=== PATIENT | female | born 2000 | race Caucasian/White ===

== ENCOUNTER 2024-12-02 13:45 | Emergency (ER) | payer OTHER, SELFPAY ==
[2024-12-02 14:22] VITALS: BP 141/80; PULSE 111; RESP 20; TEMP 36.5; O2SAT 100
--- NOTE | 2024-12-02 15:01 | ED_ITS ---
HPI - Abdominal Pain General Chief Complaint: Abdominal Pain Stated Complaint: Chest Pain/Cold Sweats Time Seen by Provider: 12/02/24 15:01 Source: patient and RN notes reviewed Mode of arrival: ambulatory Limitations: no limitations History of Present Illness HPI narrative: 24-year-old female with PCOS, GERD and anxiety presented for complaint of epigastric pain for 1 week. This morning pain was 9/10 stating it was excruciating. Endorses associated nausea, dizziness, ?buzzing in the head and hands? and cold sweats with palpitations. She also reports the pain is worse when she takes deep breaths. Says the pain is less now. Takes Pepcid regularly. She had a telehealth visit today regarding the symptoms and was advised evaluation. Denies urinary complaints, flank pain, vomiting, cough, or fever. Related Data Home Medications ?Medication ?Instructions ?Recorded ?Confirmed ?Last Taken ?Type bupropion HCl 150 mg 24 hr tablet, 150 mg PO DAILY 12/02/24 12/02/24 Unknown History extended release duloxetine 40 mg capsule,delayed 40 mg PO DAILY 12/02/24 12/02/24 Unknown History release Allergies Allergy/AdvReac Type Severity Reaction Status Date / Time No Known Allergies Allergy Verified 12/02/24 14:25 Review of Systems Review of Systems: CONSTITUTIONAL: Denies body aches, fever, chills CARDIOVASCULAR: Denies chest pain, or edema. RESPIRATORY: Denies cough or dyspnea. GASTROINTESTINAL: Endorses abdominal pain, nausea, Denies vomiting, diarrhea, hematochezia, melena, hematemesis GENITOURINARY: Denies dysuria, hematuria, or CVA tenderness. SKIN: Denies rash, or wounds. MUSCULOSKELETAL: Denies back pain, joint pain, or myalgia. NEUROLOGIC: Denies headache, numbness, tingling, or weakness. All systems reviewed & are unremarkable except as noted in HPI and below PMFSH Past Medical History Medical History PCOS (polycystic ovarian syndrome) GERD (gastroesophageal reflux disease) Anxiety Comments At time of signature, I have reviewed and agree with nursing past medical, surgical, social and family history unless otherwise noted. Please see nursing chart for further information. There is no relevant family history pertinent to the presenting complaint Exam Narrative: GENERAL: Well-appearing, and in no acute distress. ENT: Mucous membranes pink and moist. CHEST: No respiratory distress. Clear to auscultation. HEART: Regular rate and rhythm. No murmur appreciated. Normal peripheral pulses. ABDOMEN: abd soft, nondistended, normal active bowel sounds. Generalized tender abdomen: No guarding, rebound tenderness, asymmetry SKIN: Warm, dry, no rash. Capillary refill normal. Normal skin turgor. NEURO: No focal deficits. Alert and oriented x3. PSYCH: Flat affect. Course Course Emergency Course: Patient is aware of diagnosis, understands and agrees to treatment plan. Anticipatory guidance given. Patient agrees to follow-up as directed and is aware of reasons to seek care at the emergency department. Portions of this record may have been created with voice recognition software Level of Care: Express Care Visit Vital Signs Vital signs: Vital Signs Temperature 97.7 F 12/02/24 14:22 Pulse Rate 111 H 12/02/24 14:22 Respiratory Rate 12/02/24 14:22 Blood Pressure 141/80 H 12/02/24 14:22 Pulse Oximetry 100 12/02/24 14:22 Oxygen Delivery Room Air 12/02/24 14:22 Temperature 97.7 F 12/02/24 14:22 Pulse Rate 111 H 12/02/24 14:22 Respiratory Rate 20 12/02/24 14:22 Blood Pressure 141/80 H 12/02/24 14:22 Pulse Oximetry 100 12/02/24 14:22 Oxygen Delivery Room Air 12/02/24 14:22 Transfer Transfered to: [facility] Transportation: Other (Private vehicle) Transfer rationale: Pt is agreeable to transfer. Requests transfer to [facility] via private vehicle. Risks of transportation reviewed with pt including injury, worsening of condition and . v/u. Friend will be driving pt; Report called to hospital, spoke with Dr Celeste accepting physician. Pt is in stable condition at time of transfer. Advised to remain NPO and go directly to the hospital. MDM - Abdominal Pain MDM Narrative Medical decision making narrative: Patient with epigastric and generalized abdominal pain for 1 week. Advised ER transfer for further evaluation. Differential Diagnosis Differential diagnosis: Likely abdominal pain, acute appendicitis, constipation, diverticulitis, endometriosis, gastroenteritis and small bowel obstruction Discharge Plan Discharge Clinical Impression: Abdominal pain Qualifiers: Abdominal location: generalized Qualified Code(s): R10.84 - Generalized abdominal pain Patient Disposition: Acute Care Hospital Condition: Stable Patient Language: Sami Prescriptions: No Action bupropion HCl 150 mg tablet extended release 24 hr 150 mg PO DAILY duloxetine 40 mg capsule,delayed release(DR/EC) 40 mg PO DAILY Follow-up/Referrals: PHYSICIAN,OVENS SUPERVISOR [Primary Care Provider] - Time of Disposition: 15:20
== END 2024-12-02 15:15 | disposition short-term general hospital (02) ==
PROVIDERS: Emergency Provider Nurse Practitioner Family
DX: R10.84 Generalized abdominal pain (principal); J44.9 Chronic obstructive pulmonary disease, unspecified; E28.2 Polycystic ovarian syndrome; K21.9 Gastro-esophageal reflux disease without esophagitis; F41.9 Anxiety disorder, unspecified
CPT/HCPCS: 99212; G0463

== ENCOUNTER 2024-12-02 15:32 | Emergency (ER) | payer OTHER, SELFPAY ==
--- NOTE | ~2024-12-02 | XR_ITS ---
CHEST RADIOGRAPH, PA AND LATERAL CLINICAL HISTORY: dizziness, hyperventilation . COMPARISON: None TECHNIQUE: PA and lateral views of the chest. FINDINGS The cardiomediastinal silhouette is unremarkable. The lungs are clear. Visualized osseous structures and soft tissues are unremarkable. IMPRESSION: No focal infiltrate or effusion. Reviewed, dictated and finalized at location A. CUTTING MACHINE OPERATOR
--- NOTE | ~2024-12-02 | CT_ITS ---
EXAMINATION: CT abdomen pelvis w con DATE: 12/02/2024 21:38 INDICATION: Abdominal pain. TECHNIQUE: Computed tomography (CT) of the abdomen and pelvis was performed with 100 mL Omnipaque 350 intravenous contrast. Automated exposure control and iterative reconstruction technique were employe d. The dose-length product was 1101.14 mGy-cm. COMPARISON: None. FINDINGS: The visualized portions of the lung bases are clear without pneumonia or pleural effusion. The heart size is normal. No pericardial effusion. The liver is normal. The gallbladder is normal in size. The spleen, pancreas, adrenal glands, and right kidney are normal. There is a 9 mm cyst in left kidney. There are no dilated loops of bowel. The appendix is normal. There are no pathologically enl arged lymph nodes. There is no free intraperitoneal fluid. There is mild lumbar spondylosis. IMPRESSION: 1. No etiology for the patient's symptoms. Reviewed, dictated and finalized at location A. STRIAL MACHINE OPERATOR
[2024-12-02 15:36] VITALS: BP 139/84; PULSE 92; RESP 18; TEMP 36.4; O2SAT 100
--- NOTE | 2024-12-02 17:04 | ED.ABDPAIN ---
HPI - Abdominal Pain General Chief Complaint: Abdominal Pain Stated Complaint: ABD PAIN,DIZZINESS Time Seen by Provider: 12/02/24 17:00 Focused HPI: Patient is a 24-year-old female who presents to the ER with abdominal pain. She reports this morning she woke up with cold sweats, dizziness, lightheadedness, and intermittent nausea. Patient also endorses hyperventilation after this episode. She reports the other symptoms have subsided but she continues to have bilateral upper abdominal pain. Patient reports she has a history of PCOS, GERD and asthma. She denies any chest pain, shortness of breath, urinary symptoms, constipation, or wheezing. Patient and her mother are concerned patient had a heart attack. GENERAL: Well-appearing, well-nourished, and in no acute distress. HEAD: Normocephalic, atraumatic. CHEST: Clear to auscultation. ?No respiratory distress. HEART: Regular rate and rhythm.? NEURO: ?Alert and oriented x3. Patient screened in triage and initial orders placed.? ?Additional care and disposition to be based upon?diagnostic testing and treatment. Related Data Home Medications ?Medication ?Instructions ?Recorded ?Confirmed ?Last Taken ?Type bupropion HCl 150 mg 24 hr tablet, 150 mg PO DAILY 12/02/24 12/02/24 Unknown History extended release duloxetine 40 mg capsule,delayed 40 mg PO DAILY 12/02/24 12/02/24 Unknown History release Allergies Allergy/AdvReac Type Severity Reaction Status Date / Time No Known Allergies Allergy Verified 12/02/24 15:39 PMFSH Past Medical History Medical History PCOS (polycystic ovarian syndrome) GERD (gastroesophageal reflux disease) Anxiety Course Vital Signs Vital signs: Vital Signs Temperature 36.4 C 12/02/24 15:36 Pulse Rate 92 12/02/24 15:36 Respiratory Rate 18 12/02/24 15:36 Blood Pressure 139/84 12/02/24 15:36 Pulse Oximetry 100 12/02/24 15:36 Oxygen Delivery Room Air 12/02/24 15:36 Temperature 36.4 C 12/02/24 15:36 Pulse Rate 92 12/02/24 15:36 Respiratory Rate 18 12/02/24 15:36 Blood Pressure 139/84 12/02/24 15:36 Pulse Oximetry 100 12/02/24 15:36 Oxygen Delivery Room Air 12/02/24 15:36 Discharge Plan Discharge Instructions: Antibiotic Form Patient Language: Turkish Prescriptions: No Action bupropion HCl 150 mg tablet extended release 24 hr 150 mg PO DAILY duloxetine 40 mg capsule,delayed release(DR/EC) 40 mg PO DAILY Follow-up/Referrals: PHYSICIAN,ASSISTANT REFINERY OPERATOR [Primary Care Provider] -
--- NOTE | 2024-12-02 17:07 | ECG_ITS ---
Test Date: 2024-12-02 17:53:10 Measurements Intervals [place] Rate: 97 P: 25 ID: [id number] QRS: 44 QRSD: 98 T: -16 QT: 352 QTc: 448 Interpretive Statements SINUS RHYTHM INCOMPLETE RIGHT BUNDLE BRANCH BLOCK [90+ ms QRS DURATION, TERMINAL R IN V1/V2, 40+ ms S IN I/aVL/V4/V5/V6] ST DEVIATION AND MODERATE T-WAVE ABNORMALITY, CONSIDER ANTERIOR ISCHEMIA [-0.1+ mV T WAVE IN V3/V4] No previous ECG available for comparison Electronically Signed On 12-02-2024 21:08:20 SUCTION PLATE ROLLER HAND by Florentino Marques M.D.
--- NOTE | 2024-12-02 18:17 | PC.NURSE ---
Pt extremely anxious during SL insertion started rocking back & forth, screaming developed vomiting. Pt calmed down on own, assisted pt in hygiene & placed in gown. Denies nausea
[2024-12-02 18:23] LABS: Basophils Percent Auto 0.3 % (0.2-1.2); Eosinophils Percent Auto 0.3 % (0-4.4); Hematocrit 43.1 % (37.0-47.0); Hemoglobin 15.1 g/dL (12.0-15.0); Immature Granulocyte Absolute 0.03 K/mm3 (0.00-0.031); Immature Granulocyte Percent A 0.4 % (0-0.5); Lymphocytes Percent Auto 16.1 % (18.3-44.2); Mean Corpuscular Hemoglobin 32.5 pg (26-34); Mean Corpuscular Volume 92.7 fl (80-100); Mean Platelet Volume 9.5 fl (7.4-10.4); Monocytes Absolute Auto 0.7 K/mm3 (0.1-0.6); Monocytes Percent Auto 8.7 % (2.6-8.5); Neutrophils Absolute Auto 5.5 K/mm3 (1.3-6.7); Neutrophils Percent Auto 74.2 % (45.5-73.1); Platelet Count Result 363 k/mm3 (150-375); Red Blood Count 4.65 M/mm3 (4.2-5.4); White Blood Count 7.4 K/mm3 (4.5-10.0)
[2024-12-02 18:32] LABS: Bacteria Urine Rare /hpf; Non Pathogenic Casts 0-2; RBC Urine >100 /hpf (0-2); Squamous Epithelial Cell Urine None Seen /hpf (Few); WBC Urine 21-50 /hpf (0-3)
[2024-12-02 18:46] LABS: Add Urine Microscopic? YES; Appearance Urine Cloudy (Clear); Bilirubin Urine Negative (Negative); Blood Urine 3+ (Negative); Color Urine Orange (Yellow); Glucose Urine UA Negative (Negative); Ketones Urine Negative (Negative); Leukocyte Esterase Ur 1+ LEU/UL (Negative); Nitrate Urine Negative (Negative); Protein Urine 1+ mg/dL (Negative); Specific Grav Ur 1.012 (1.001-1.035)
[2024-12-02 18:59] LABS: Influenza A QL RT-PCR Negative (Negative); Influenza B QL RT-PCR Negative (Negative); RSV RNA, RT-PCR Negative (Negative); SARS-CoV-2 RNA PCR Negative (Negative)
[2024-12-02] MEDS: MAG HYDROX/AL HYDROX/SIMETH 30 ML UDC PO (19:22)
[2024-12-02] MEDS: LIDOCAINE 2% VISC SOLN 15 ML UDC 20 ML PO (19:23)
[2024-12-02 19:36] VITALS: BP 140/86; PULSE 84; RESP 15; O2SAT 100
[2024-12-02 19:55] LABS: Alanine Aminotransferase 486 U/L (6-35); Albumin Level 4.3 g/dL (3.5-5.1); Alkaline Phosphatase 93 U/L (38-126); Anion Gap 6 mmol/L (4-12); Aspartate Amino Transferase 555 U/L (14-36); Bilirubin,Total 1.3 mg/dL (0.2-1.3); Blood Urea Nitrogen 6 mg/dL (7-17); Calcium 8.9 mg/dL (8.4-10.2); Carbon Dioxide 28 mmol/L (22-30); Chloride 103 mmol/L (98-107); Estimated CRCL calculation 132 ml/min; Estimated Glomerular Filt Rate > 60; Glucose 86 mg/dL (65-110); Lipase 139 U/L (23-300); Potassium 3.9 mmol/L (3.4-5.0); Sodium 137 mmol/L (137-145)
[2024-12-02 20:07] LABS: Troponin I < 0.012 ng/mL (0.000-0.034)
[2024-12-02 20:41] LABS: BEDSIDEPREGUCG Negative (Negative)
[2024-12-02 21:17] VITALS: BP 146/92; PULSE 76; RESP 15; O2SAT 100
--- NOTE | 2024-12-02 21:56 | ED.GENADULT ---
HPI - General Adult General Chief complaint: Abdominal Pain Stated complaint: ABD PAIN,DIZZINESS Time Seen by Provider: 12/02/24 17:00 History of Present Illness HPI narrative: This is 24-year-old female presenting ED with chief complaint of epigastric pain. Patient says for the last week she has been waking up in the morning with stabbing epigastric pain. Takes around 4-5 hours for it to settle down. It resolved without intervention. During these times she will become lightheaded or nauseous. She does not think her symptoms are related to food. She does not typically eat until after the abdominal pain is ended. Patient is on Pepcid once daily. Patient is requesting food. Patient is declining pain medications. Patient is denying fevers chills chest pain difficulty breathing or urinary symptoms. Related Data Home Medications ?Medication ?Instructions ?Recorded ?Confirmed ?Last Taken ?Type bupropion HCl 150 mg 24 hr tablet, 150 mg PO DAILY 12/02/24 12/02/24 Unknown History extended release duloxetine 40 mg capsule,delayed 40 mg PO DAILY 12/02/24 12/02/24 Unknown History release Allergies Allergy/AdvReac Type Severity Reaction Status Date / Time No Known Allergies Allergy Verified 12/02/24 15:39 PMFSH Past Medical History Medical History PCOS (polycystic ovarian syndrome) GERD (gastroesophageal reflux disease) Anxiety Exam Narrative: APPEARANCE: No apparent distress. Head: atraumatic. EYES: EOMI, NOSE: Atraumatic NECK: Trachea midline RESPIRATORY: No increased rate of breathing CTAB CARDIOVASCULAR: RRR, ABDOMINAL: Abdomen is soft nontender with no guarding or rebound no CVA tenderness MUSCULOSKELETAl: No obvious deformities NEURO: Alert. Moving 4/4 extremities SKIN:: Warm, dry. Normal color PSYCHIATRIC: Normal affect Course Vital Signs Vital signs: Vital Signs Temperature 97.6 F 12/02/24 15:36 Pulse Rate 92 12/02/24 15:36 Respiratory Rate 18 12/02/24 15:36 Blood Pressure 139/84 12/02/24 15:36 Pulse Oximetry 100 12/02/24 15:36 Oxygen Delivery Room Air 12/02/24 15:36 Temperature 97.6 F 12/02/24 15:36 Pulse Rate 76 12/02/24 21:17 Respiratory Rate 15 12/02/24 21:17 Blood Pressure 146/92 H 12/02/24 21:17 Pulse Oximetry 100 12/02/24 21:17 Oxygen Delivery Room Air 12/02/24 15:36 Medical Decision Making [facility] Narrative Medical decision making narrative: -Course: 24-year-old female presenting with epigastric pain. Her pain has since improved without intervention. Workup here showed a normal CT without causative findings. She does have some elevations in her liver enzymes with a normal T bili and alk-phos. No tenderness in the right upper quadrant or inflammation of her gallbladder on CT. On re-evaluation patient is resting comfortably in bed. Her family has brought her food and she is anxious to eat. Patient will be referred to GI so she can be evaluated for endoscopy and for further workup of her elevated liver enzymes. She has been given return precautions. -DDX includes but is not limited to: Gastritis peptic ulcer disease, gallbladder pathology, pancreatitis GERD -Co-morbidities complicating care: Obesity -Independent interpretation of studies: Labs and imaging reviewed -Shared decision making / Disposition:discharged. Vital Signs Vital Signs: Vital Signs Temperature 97.6 F 12/02/24 15:36 Pulse Rate 92 12/02/24 15:36 Respiratory Rate 18 12/02/24 15:36 Blood Pressure 139/84 12/02/24 15:36 Pulse Oximetry 100 12/02/24 15:36 Oxygen Delivery Room Air 12/02/24 15:36 Temperature 97.6 F 12/02/24 15:36 Pulse Rate 76 12/02/24 21:17 Respiratory Rate 15 12/02/24 21:17 Blood Pressure 146/92 H 12/02/24 21:17 Pulse Oximetry 100 12/02/24 21:17 Oxygen Delivery Room Air 12/02/24 15:36 Lab Data 12/02/24 18:02 12/02/24 19:34 Labs: Lab Results 12/02/24 12/02/24 12/02/24 Range/Units 18:02 19:34 20:39 WBC 7.4 (4.5-10.0) K/mm3 RBC 4.65 (4.2-5.4) M/mm3 Hgb 15.1 H (12.0-15.0) g/dL Hct 43.1 (37.0-47.0) % MCV 92.7 (80-100) fl MCH 32.5 (26-34) pg MCHC 35.0 (32-36) g/dl RDW 12.0 (11.5-14.5) % Plt Count 363 (150-375) k/mm3 MPV 9.5 (7.4-10.4) fl Immature Gran % (Auto) 0.4 (0-0.5) % Neut % (Auto) 74.2 H (45.5-73.1) % Lymph % (Auto) 16.1 L (18.3-44.2) % [place] % (Auto) 8.7 H (2.6-8.5) % Eos % (Auto) 0.3 (0-4.4) % Baso % (Auto) 0.3 (0.2-1.2) % Lymph # (Auto) 1.20 (0.9-3.2) K/mm3 [place] # (Auto) 0.7 H (0.1-0.6) K/mm3 Eos # (Auto) 0.0 (0-0.3) K/mm3 Baso # (Auto) 0.0 (0.0-0.1) K/mm3 Abs Immat Gran (auto) 0.03 (0.00-0.031) K/mm3 Absolute Neuts (auto) 5.5 (1.3-6.7) K/mm3 Absolute Nucleated RBC 0.000 (0.0-0.012) K/mm3 Nucleated RBC % 0.0 (0.0-0.2) % Sodium 137 (137-145) mmol/L Potassium 3.9 (3.4-5.0) mmol/L Chloride 103 (98-107) mmol/L Carbon Dioxide 28 (22-30) mmol/L Anion Gap 6 (4-12) mmol/L BUN 6 L (7-17) mg/dL Creatinine 0.64 L (0.7-1.0) mg/dL Estim Creat Clear Calc 132 ml/min Estimated GFR > 60 (59 - ) Glucose 86 (65-110) mg/dL Calcium 8.9 (8.4-10.2) mg/dL Total Bilirubin 1.3 (0.2-1.3) mg/dL AST 555 H (14-36) U/L ALT 486 H (6-35) U/L Alkaline Phosphatase 93 (38-126) U/L Troponin I < 0.012 (0.000-0.034) ng/mL Total Protein 8.0 (6.3-8.2) g/dL Albumin 4.3 (3.5-5.1) g/dL Lipase 139 (23-300) U/L Urine Color Bureau H (Yellow) Urine Appearance Cloudy H (Clear) Urine pH 8.0 (5.0-9.0) Ur Specific [place] 1.012 (1.001-1.035) Urine Protein 1+ H (Negative) mg/dL Urine Glucose (UA) Negative (Negative) mg/dL Urine Ketones Negative (Negative) mg/dL Ur Blood (Man) 3+ H (Negative) Urine Nitrate Negative (Negative) Urine Bilirubin Negative (Negative) Urine Urobilinogen 1.0 (<2.0) mg/dL Leukocyte Esterase Rfl 1+ H (Negative) COLBY/UL Urine RBC >100 H (0-2) /hpf Urine WBC 21-50 H (0-3) /hpf Ur Squamous Epith Cells None seen (Few) /hpf Urine Bacteria Rare /hpf Urine Casts 0-2 POC Urine HCG, Qual Negative (Negative) Influenza A (RT-PCR) Negative (Negative) Influenza B (RT-PCR) Negative (Negative) RSV (RT-PCR) Negative (Negative) SARS-CoV-2 RNA (RT-PCR) Negative (Negative) Discharge Plan Discharge Clinical Impression: Acute epigastric pain Patient Disposition: Home, Self-Care Condition: Stable Instructions: Antibiotic Form, Diet for Stomach Ulcers and Gastritis (ED), Abdominal Pain (ED), Transaminitis (ED) Additional Instructions: You were seen in the emergency department for epigastric pain. Your CT scan was unremarkable. You also have some elevations in your liver enzymes. Please call the GI Clinic tomorrow morning to schedule follow-up. Return to ED if you develop severe abdominal pain, fevers or any new or worsening symptoms. Please take Protonix 40 mg once daily. Use Tylenol for pain. Patient Language: Mongolian Prescriptions: New omeprazole 40 mg capsule,delayed release(DR/EC) 40 mg PO DAILY Qty: 30 0RF No Action bupropion HCl 150 mg tablet extended release 24 hr 150 mg PO DAILY duloxetine 40 mg capsule,delayed release(DR/EC) 40 mg PO DAILY Follow-up/Referrals: Sneha Lenz MD [Physician] - 1 Week (Establish pcp) PHYSICIAN,KEYCASE ASSEMBLER [Primary Care Provider] - Salvador Rm MD [Physician] - 1 Week (Epigastric pain, Elevated liver enzymes)
[2024-12-02 22:37] VITALS: BP 152/88; PULSE 83; RESP 15; O2SAT 97
== END 2024-12-02 22:38 | disposition home or self-care (01) ==
PROVIDERS: Registered Nurse; Emergency Provider Emergency Medicine
DX: R10.13 Epigastric pain (principal); F41.9 Anxiety disorder, unspecified; K21.9 Gastro-esophageal reflux disease without esophagitis; Z20.822 Contact with and (suspected) exposure to COVID-19
CPT/HCPCS: 36415; 71046; 74177; 80053; 81001; 81025; 83690; 84484; 85025; 87086; 87637; 93005; 99284; A9270; Q9967

== ENCOUNTER 2024-12-24 09:22 | Outpatient (CLI) | payer OTHER, SELFPAY ==
--- NOTE | ~2024-12-24 | US_ITS ---
US abdomen limited INDICATION: Abdomen pain. Elevated liver function tests. PROCEDURE: Realtime right upper abdominal ultrasound. COMPARISON: No prior studies for comparison. FINDINGS: The pancreas is normal without focal mass or pancreatic ductal dilation. Liver echotexture is increased, consistent with fatty infiltration. There is normal directional flow in the portal ve in. There are gallstones near the gallbladder neck. Common bile duct measures 3 mm. No sonographic Murp hy's sign. IMPRESSION: 1: Gallstones. 2: Fatty infiltration of the liver. Reviewed, dictated and finalized at location B. SURY ANALYST
== END 2024-12-24 09:23 | disposition home or self-care (01) ==
PROVIDERS: Visit Provider Nurse Practitioner
DX: B17.9 Acute viral hepatitis, unspecified (principal); K80.20 Calculus of gallbladder without cholecystitis without obstruction; K76.0 Fatty (change of) liver, not elsewhere classified
CPT/HCPCS: 76705

== ENCOUNTER 2025-01-10 12:58 | Outpatient (CLI) | payer OTHER, SELFPAY ==
[2025-01-10 13:33] LABS: Basophils Percent Auto 0.3 % (0.2-1.2); Eosinophils Absolute Auto 0.1 K/mm3 (0-0.3); Hematocrit 42.6 % (37.0-47.0); Hemoglobin 14.8 g/dL (12.0-15.0); Immature Granulocyte Absolute 0.03 K/mm3 (0.00-0.031); Immature Granulocyte Percent A 0.4 % (0-0.5); Lymphocytes Absolute Auto 1.38 K/mm3 (0.9-3.2); Lymphocytes Percent Auto 17.4 % (18.3-44.2); Mean Corpuscular HGB Conc 34.7 g/dl (32-36); Mean Corpuscular Hemoglobin 32.7 pg (26-34); Mean Platelet Volume 9.4 fl (7.4-10.4); Monocytes Absolute Auto 0.6 K/mm3 (0.1-0.6); Monocytes Percent Auto 8.1 % (2.6-8.5); Neutrophils Absolute Auto 5.8 K/mm3 (1.3-6.7); Neutrophils Percent Auto 72.8 % (45.5-73.1); Platelet Count Result 340 k/mm3 (150-375); Red Blood Count 4.53 M/mm3 (4.2-5.4); Red Cell Distribution Width 11.9 % (11.5-14.5); White Blood Count 7.9 K/mm3 (4.5-10.0)
[2025-01-10 13:53] LABS: Alanine Aminotransferase 19 U/L (6-35); Albumin Level 4.4 g/dL (3.5-5.1); Alkaline Phosphatase 57 U/L (38-126); Amylase 70 U/L (30-110); Aspartate Amino Transferase 20 U/L (14-36); Bilirubin,Total 0.5 mg/dL (0.2-1.3); Lipase 151 U/L (23-300)
== END 2025-01-10 12:59 | disposition home or self-care (01) ==
LOC: ANHSURGERY 13:04
PROVIDERS: Visit Provider Surgery
DX: Z01.818 Encounter for other preprocedural examination (principal); K80.10 Calculus of gallbladder with chronic cholecystitis without obstruction
CPT/HCPCS: 36415; 80076; 82150; 83690; 85025

== ENCOUNTER 2025-01-14 00:51 | Day surgery (SDC) | payer OTHER, SELFPAY ==
[2025-01-09 11:59] VITALS: BMI 37.4
--- NOTE | 2025-01-09 12:07 | PC.NURSE ---
Report to the Outpatient Waiting Room, entrance under the green pavilion located off [facility], at time _1130_ on date _[id number]_. Planned Procedure Time: _130pm_.? Time changes happen often and if your time is changed the preop area will call you the afternoon before. - You and your visitor will be asked to self-screen and do not enter if you have any COVID symptoms. Please call surgeon if you need to reschedule. - A mask is optional within the hospital at this time. Patients may have clear liquids (water, carbonated beverages, clear teas, apple juice) until 3 hours prior to surgery with a maximum of 20 ounces. - No food from midnight until time of surgery and no smoking, or chewing tobacco (or any form of nicotine). No chewing gum, candy or mints. Take only the following medications with a SIP of water on the morning of surgery: __Bupropion DO NOT STOP ANY OF YOUR OTHER PRESCRIPTION MEDICATIONS PRIOR TO SURGERY EXCEPT THE FOLLOWING Hold all vitamins and supplements for 3 days per anesthesiologist. Medications to discontinue per physician Date to take last dose Please no make-up, nail macedonian, hairspray, perfume, deodorant, or body powder the day of surgery.? No jewelry (including any body piercings) or valuables the day of surgery, leave them at home.? Please take a shower or bath the night before, or the morning of, surgery with an antibacterial soap.? Wear comfortable, loose fitting clothing.? - Jewelry must be removed prior to entering the operating room.? Rings and piercings that are not removed may be cut off. - The hospital will not accept responsibility for valuables.? - Please leave all valuables, including medications, at home the day of surgery. If you are going home after surgery, a licensed tank truck driver must drive you home.? - NO public transportation without another adult if you receive anesthesia. - We recommend that an adult stay with you for 24 hours following discharge. - We also recommend that you do not drive, make important decision, drink alcoholic beverages, or take any drugs that were not prescribed by your health care provider for at least 24 hours after your discharge time. Follow any additional instructions given to you from your surgeon. Telephone instructions given to __Trinity___and asked if any additional questions and then verbalized understanding. Patient advised to call surgeon office or pre surgery nurse liaison [phone] if any additional questions.
[2025-01-14] VITALS (13 sets, daily range): BP systolic 117–151; BP diastolic 61–91; PULSE 71–97; RESP 9–25; TEMP 36.4–37.1; O2SAT 95–100; BMI 36.7
[2025-01-14] MEDS: ACETAMINOPHEN 500 MG TABLET 1000 MG PO (11:55)
[2025-01-14] MEDS: LACTATED RINGERS 1,000 ML 30 ML IV CONT ×2 (12:00→15:48)
[2025-01-14] MEDS: KETOROLAC 15 MG/ML VIAL (*BKC) IV PUSH (12:05)
--- NOTE | 2025-01-14 12:38 | WPDHPUPDATE1 ---
History and Physical Update Update Date/Time: 01/14/25 12:38 History and Physical has been reviewed, including an updated exam of the patient. There are NO changes in the patient's condition. Risks, benefits, and alternatives have been discussed and questions answered. Patient agrees to proceed with procedure.
--- NOTE | 2025-01-14 13:30 | P.PNAN_ITS ---
Anes - Initial Pre Proc Eval Procedure: Operation Date: 01/14/25 13:30 Proposed Procedures p Laparoscopic Cholecystectomy - Moisés Traore MD Date/Time: 01/14/25 13:30 Surgeon: Moisés Traore MD Pre Op Diagnosis: Chronic Cholecystitis with stones Patient Data Age: 24 Gender: F Height: 1.63 m Weight: 94.7 kg Last Vital Signs Temp 97.8 F 01/14/25 11:45 Pulse 97 01/14/25 11:45 Resp 16 01/14/25 11:45 BP 140/86 01/14/25 11:45 Pulse Ox 99 01/14/25 11:45 O2 Del Method Room Air 01/14/25 11:45 Allergies Allergy/AdvReac Type Severity Reaction Status Date / Time No Known Allergies Allergy Verified 01/09/25 11:57 Home Medications ?Medication ?Instructions ?Recorded ?Confirmed ?Type duloxetine 40 mg capsule,delayed 40 mg PO DAILY 12/02/24 01/14/25 History release omeprazole 40 mg capsule,delayed 40 mg PO DAILY #30 caps 12/09/24 01/14/25 Rx release bupropion HCl 150 mg 24 hr tablet, 300 mg PO DAILY 12/30/24 01/14/25 History extended release magnesium 250 mg tablet 250 mg PO DAILY 01/09/25 01/14/25 History [id number] carb-vit K 1 tablet PO DAILY 01/09/25 01/14/25 History 18 mg iron-400 mcg-500 mg tablet (One-A-Day Womens Formula) Patient hx anesthesia problems: none Family hx anesthesia problems: none Results Review: All pre-operative results and documents have been reviewed as part of the pre- operative evaluation. [facility] Past Medical History Medical History (Updated 12/30/24 @ 10:14 by Rashmi Foreman CMA) Headache PCOS (polycystic ovarian syndrome) GERD (gastroesophageal reflux disease) Anxiety Surgical History Surgical History (Updated 12/30/24 @ 09:37 by Ludivina Woody) [place] teeth extracted Hx of dilation of urethra Family History Family History Other Depression Diabetes mellitus Heart disease Hypertension Social History Social History (Updated 12/30/24 @ 09:39 by Lduivina Woody) Smoking status: Former smoker Alcohol intake: former Do You Feel Safe in your Home?: Yes Lack of Transportation: No Lack of Food: Never True Current Housing: I Have Housing Concerned About Future Housing: No Difficulty Paying Gas/Electric Bills: No Difficulty Paying for Meds: No Currently Unemployed: No Education: High School Diploma/GED Difficulty w/ Childcare or Family Care: No Living arrangements: with family Spiritual care concerns: No Anes - Eval Final PreProcedure Day of Procedure 01/14/25 13:30 Patient weight: obese Heart: regular rate and rhythm Lungs: clear to auscultation Airway: Mallampati scale class II Neurological: alert and oriented Last oral intake: >/= 8 hours ASA classification: II Emergent: no Anesthetic plan: proceed Anesthesia type and monitoring: general ETT and standard monitoring Results Review: All pre-operative results and documents have been reviewed as part of the pre- operative evaluation. Informed Consent: The patient's anesthetic plan and its attendant risks and benefits were discussed with the patient/family/POA. Questions were solicited and answers provided to the satisfaction of the patient/family/POA.
[2025-01-14] MEDS: ceFAZolin 2 GM/D5W 50 ML 2 GM/50 ML BAG IVPB (14:14)
[2025-01-14] MEDS: BUPIVACAINE/EPINEPHRINE 0.5% 50 ML VIAL 30 ML INFILTRATE (14:15)
--- NOTE | 2025-01-14 15:36 | P.OP_ITS ---
Procedure Note - Detailed Date of Procedure 01/14/25 Pre-op Diagnosis Chronic Cholecystitis with stones Post-op Diagnosis Same Procedure Performed Laparoscopic cholecystectomy Surgeon Moisés Traore MD Boilermaker Loftsman Rama RODRIGUEZ Anesthesia General and Local Indications Patient was experiencing epigastric abdominal pain associated with nausea. Imaging showed gallstones. She is taken to surgery now for laparoscopic cholecystectomy. Findings Chronic inflammation, no large gallstones noted, mild fatty liver. Description of Procedure Patient was taken to surgery and induced into general anesthesia. The abdomen is prepped and draped. Trocars were placed in the usual fashion using [email or web address] optical trocars and a 5 mm camera. The gallbladder was decompressed with a laparoscopic aspirator. The cholecystotomy was closed with a Vicryl endoloop. Gallbladder was then retracted anterosuperiorly. Traction was placed on the infundibulum and dissection was started in the cholecystohepatic triangle. All was going nicely until I dissected with hook cautery on peritoneum on the lateral posterior aspect of the gallbladder. Brisk arterial bleeding began. At 1st I thought this was just a small artery on the edge of the gallbladder fossa. However, further exposure showed that this was significant brisk bleeding and probably from either the right hepatic artery or a branch of the right hepatic artery. I used 2 clamps to control this initially. There was still some small amount of oozing. Known of blood loss had occurred that the patient had a drop in blood pressure which was addressed by our anesthesiologist. Fluids were also administered and blood pressure returned to the normal range. All the bleeding was at present controlled, there was no means to continue dissection or expose the area of bleeding. I put another 5 mm port in the left mid abdomen. This was a laparoscopic DeBakey grasper. I was able to clamp the bleeding vessel with the DeBakey and stop the bleeding again. At least 2 or 300 more cc of blood were lost while replacing with the DeBakey grasper. From there, high suction and irrigated the blood in the abdomen removing nearly all of it and cleaning the area of the lower, posterior gallbladder. I then began some additional dissection, dividing peritoneum on both the lateral and medial sides of the gallbladder. The gallbladder was partially intrahepatic and I placed a 2nd left-sided 5 mm trocar. A laparoscopic Kittner was placed through this trocar and used to retract the medial segment of the left lobe of the liver so that I could see the medial wall of the gallbladder. Continued dissection was then carried out with minimal bleeding during this time. Was able to dissect the cystic duct and cystic artery very clearly. I was able to dissect the gallbladder off the liver over its lower 3rd. Critical view was achieved. I then securely clipped and divided the cystic duct and cystic artery. This greatly facilitated the ability to expose the bleeding vessel very near the liver at the bottom of the gallbladder fossa. From there, I used the hook cautery and some blunt dissection to better visualize the vascular bleeding. Tried to place the clip above the clamp and this resulted in additional bleeding. This was enough bleeding that the patient briefly dropped her blood pressure again. She responded to fluids and came back into the normal range. I continued dissection and irrigation. It appeared I could place a clip under the DeBakey grasper clamping the area of bleeding. I used the more lateral left-sided trocar and was able to slide under the DeBakey grasper and clip the vessel. I slowly removed the DeBakey and saw no additional bleeding. It appeared this was an anterior branch of the right hepatic artery as the bulk of the right hepatic artery was below the clip and appeared uninjured. This was observed for several minutes. Irrigation and suctioning were carried out. No additional bleeding occurred. I then in used some Surgiflo in the area and held pressure with a Ray-Mingo sponge. Once the Ray-Mingo sponge was removed, there was no bleeding from the liver and no bleeding whatsoever from the area of the right hepatic artery branch.I then irrigated the gallbladder fossa in the right upper quadrant repeatedly. We re-reviewed the area of the bleeding and saw no sign of rebleedi ng. Patient was hemodynamically stable and estimated blood loss was 1300 cc. The gallbladder fossa and the area of the bleeding hepatic artery branch were hemostatic. There was no evidence of bile leakage. We then evacuated CO2 and removed the trocar sleeves. Skin wounds were closed with subcuticular 4-0 Monocryl skin suture. The wounds were dressed with Exofin surgical adhesive. The patient was then awakened and taken to recovery in good condition. Sponge and needle counts were correct x2. Estimated Blood Loss -1,300 Drains No Packing No Pathology Yes (Gallbladder) Complications Other complications (Intraoperative bleeding controlled laparoscopically) Condition Stable Disposition PACU [facility] Billing Surgery - Charge Forward: Surgery Billing (Laparoscopic cholecystectomy)
[2025-01-14 16:07] LABS: Basophils Percent Auto 0.1 % (0.2-1.2); Eosinophils Absolute Auto 0.1 K/mm3 (0-0.3); Eosinophils Percent Auto 0.4 % (0-4.4); Hematocrit 37.4 % (37.0-47.0); Immature Granulocyte Absolute 0.07 K/mm3 (0.00-0.031); Immature Granulocyte Percent A 0.5 % (0-0.5); Lymphocytes Percent Auto 9.9 % (18.3-44.2); Mean Corpuscular HGB Conc 34.8 g/dl (32-36); Mean Corpuscular Hemoglobin 32.7 pg (26-34); Mean Corpuscular Volume 94.2 fl (80-100); Mean Platelet Volume 9.4 fl (7.4-10.4); Monocytes Absolute Auto 0.5 K/mm3 (0.1-0.6); Monocytes Percent Auto 3.3 % (2.6-8.5); Neutrophils Absolute Auto 12.1 K/mm3 (1.3-6.7); Neutrophils Percent Auto 85.8 % (45.5-73.1); Platelet Count Result 317 k/mm3 (150-375); Red Blood Count 3.97 M/mm3 (4.2-5.4); Red Cell Distribution Width 11.9 % (11.5-14.5); White Blood Count 14.1 K/mm3 (4.5-10.0)
[2025-01-14] MEDS: fentaNYL CITRATE INJ (*CRX) 100 MCG/2 ML VIAL 25 MCG IV PUSH ×7 (16:13→16:40)
[2025-01-14] MEDS: oxyCODONE/ACETAMINOPHEN (*CRX) 5-325 MG TABLET 1 TABLET PO (17:31)
[2025-01-14] MEDS: LACTATED RINGERS 1,000 ML 100 ML IV CONT (17:31)
[2025-01-14] MEDS: ONDANSETRON INJ 4 MG/2 ML VIAL IV PUSH (17:31)
--- NOTE | 2025-01-14 18:17 | ADMGEN ---
This patient, Bonita Bartlett, was admitted to IMU Room 213-01 at approximately 1725 . Patient/family oriented to hospital policies and general routines including ID bracelet, bed and alarms, visiting hours, pain management, procedures, bathroom and other care routines, personal items, smoking policy, room service/diet, and visiting hours. Information on how to activate the Rapid Response Team has been discussed. Patient/Family are encouraged to report perceived risks to care and to ask questions if they do not understand what they are told or what they should do.
--- NOTE | 2025-01-14 18:28 | PC.NURSE ---
Spoke with Dr lagos and Santhosh peralta to change patients home medications to accurate time. PT takes all meds at night except for buspar.
[2025-01-14 20:00] LABS: Hemoglobin 12.6 g/dL (12.0-15.0); Mean Corpuscular Hemoglobin 32.5 pg (26-34); Mean Corpuscular Volume 92.8 fl (80-100); Mean Platelet Volume 9.4 fl (7.4-10.4); Platelet Count Result 329 k/mm3 (150-375); Red Blood Count 3.88 M/mm3 (4.2-5.4); Red Cell Distribution Width 11.9 % (11.5-14.5); White Blood Count 15.6 K/mm3 (4.5-10.0)
[2025-01-14] MEDS: MAGNESIUM 13.5 MG TABLET (250 MG MAG GLUCONATE) PO (20:24)
[2025-01-14] MEDS: DULoxetine HCL 20 MG CAPSULE.DR 40 MG PO (20:24)
[2025-01-14] MEDS: PANTOPRAZOLE 40 MG TABLET PO (20:25)
[2025-01-14] MEDS: ACETAMINOPHEN 500 MG TABLET PO (20:25)
[2025-01-15] VITALS (9 sets, daily range): BP systolic 136–143; BP diastolic 77–79; PULSE 61–117; RESP 18–20; TEMP 36.6–36.9; O2SAT 97–100
[2025-01-15] MEDS: IBUPROFEN IV 800 MG/200 ML 800 MG/200 ML BAG 400 MG IVPB (01:42)
[2025-01-15] MEDS: LACTATED RINGERS 1,000 ML 100 ML IV CONT (04:00)
[2025-01-15 04:17] LABS: Hemoglobin 14.1 g/dL (12.0-15.0); Mean Corpuscular HGB Conc 34.4 g/dl (32-36); Mean Corpuscular Hemoglobin 32.3 pg (26-34); Mean Platelet Volume 9.4 fl (7.4-10.4); Platelet Count Result 419 k/mm3 (150-375); Red Blood Count 4.36 M/mm3 (4.2-5.4); Red Cell Distribution Width 11.7 % (11.5-14.5); White Blood Count 17.2 K/mm3 (4.5-10.0)
[2025-01-15 04:28] LABS: Prothrombin Time 13.9 Seconds (11.1-14.7)
[2025-01-15 04:29] LABS: Alanine Aminotransferase 82 U/L (6-35); Albumin Level 4.6 g/dL (3.5-5.1); Alkaline Phosphatase 61 U/L (38-126); Anion Gap 14 mmol/L (4-12); Aspartate Amino Transferase 73 U/L (14-36); Bilirubin,Total 0.5 mg/dL (0.2-1.3); Blood Urea Nitrogen 5 mg/dL (7-17); Calcium 9.4 mg/dL (8.4-10.2); Carbon Dioxide 25 mmol/L (22-30); Chloride 103 mmol/L (98-107); Estimated CRCL calculation 118 ml/min; Estimated Glomerular Filt Rate > 60; Glucose 106 mg/dL (65-110); Partial Thromboplastin Time 25.8 Seconds (22.3-36.8); Potassium 3.8 mmol/L (3.4-5.0); Sodium 142 mmol/L (137-145)
[2025-01-15] MEDS: buPROPion HCL XL (24 HR) 150 MG TABCR 300 MG PO (08:28)
[2025-01-15] MEDS: oxyCODONE/ACETAMINOPHEN (*CRX) 5-325 MG TABLET 1 TABLET PO (08:40)
--- NOTE | 2025-01-15 11:47 | PM.DS ---
DS: Admitting Diagnosis Discharge Date 01/15/25 Admitting Diagnosis Chronic cholecystitis with gallstones DS: Discharge Diagnosis Discharge Diagnosis (1) Chronic cholecystitis with calculus: Code(s): K80.10 - Calculus of gallbladder with chronic cholecystitis without obstruction Status: Acute DS: Summary Status at Discharge Functional status at discharge: independent ambulation Overall status at discharge: patient is progressing back to baseline Time Spent with Patient Time attestation: Total time spent providing and/or coordinating discharge services: Time spent: Less than 30 minutes Exam Const: General: comfortable and no acute distress Resp: Effort & Inspection: normal respiratory effort Auscultation: clear to auscultation bilaterally Cardio: Rate: regular rate Rhythm: regular rhythm GI: Inspection: non-distended and incision (incisions dry and intact, no erythema or drainage) GI Palp: Yes Soft to palpation, Yes Tenderness to palpation present (GI) (expected incisional tenderness), No Guarding due to palpation present (GI) and No Rebound tenderness present Auscultation: normal bowel sounds Neuro: General: moves all extremities and no focal motor deficits Extrem: General: no calf tenderness and no edema Psych: Mental Status: mental status grossly normal Insight: Good insight present (Psych) DS: Data Data Completed and Pending Pending studies at discharge: Pending at discharge 01/14/25 14:46 Surgical [PTH] Routine Labs on day of discharge: Labs from last 24 hours 01/15/25 01/14/25 01/14/25 04:11 19:56 16:02 WBC 17.2 H 15.6 H 14.1 H RBC 4.36 3.88 L 3.97 L Hgb 14.1 12.6 13.0 Hct 41.0 36.0 L 37.4 MCV 94.0 92.8 94.2 MCH 32.3 32.5 32.7 MCHC 34.4 35.0 34.8 RDW 11.7 11.9 11.9 Plt Count 419 H 329 317 MPV 9.4 9.4 9.4 Immature Gran % (Auto) 0.5 Neut % (Auto) 85.8 H Lymph % (Auto) 9.9 L [place] % (Auto) 3.3 Eos % (Auto) 0.4 Baso % (Auto) 0.1 L Lymph # (Auto) 1.40 [place] # (Auto) 0.5 Eos # (Auto) 0.1 Baso # (Auto) 0.0 Abs Immat Gran (auto) 0.07 H Absolute Neuts (auto) 12.1 H Absolute Nucleated RBC 0.000 Nucleated RBC % 0.0 PT 13.9 INR 1.0 APTT 25.8 Sodium 142 Potassium 3.8 Chloride 103 Carbon Dioxide 25 Anion Gap 14 H BUN 5 L Creatinine 0.73 Estim Creat Clear Calc 118 Estimated GFR > 60 Glucose 106 Calcium 9.4 Total Bilirubin 0.5 AST 73 H ALT 82 H Alkaline Phosphatase 61 Total Protein 8.0 Albumin 4.6 Blood Type A Negative Antibody Screen Negative Procedures/Treatments: Procedures Operation Date: 01/14/25 13:30 Actual Procedure Side Surgeon p Laparoscopic Cholecystectomy Not Applicable Moisés Ge MD Discharge Plan Discharge Patient Disposition: Home, Self-Care Discharge Instructions: DISCHARGE INSTRUCTION SHEET FOR HERNIA AND LAP NICKOLAS SURGERIES DR. GE 1. May shower the day after surgery over incisions. 2. Call office for: Wound increasingly painful or bleeding Vomiting Fever of greater than 101 degrees 3. Expect some blood on dressing and old blood on skin. 4. If no bowel movement for three days, take 1 oz. (30 ml) Milk of Magnesia, if no results, take Fleets enema. 5. No heavy lifting > 10-15 pounds x 2-3 weeks for laparoscopic cholecystectomy. 6. No driving for 3 days or while taking narcotic pain medications. 7. Up walking 10-30 minutes three times per day. 8. Resume previous home medications. 9. Follow-up 10-14 days in office for wound check or as previously scheduled. 10. Oral pain medications prescription to be sent electronically to the pharmacy. 11. Will order labs to be done on 01/17/25, at [place]. You should receive the order in your discharge packet. 12. Continue low fat diet x 2 weeks Patient Language: Sami Stand Alone Forms: General Discharge Instructions Follow-up/Referrals: Moisés Ge MD [Physician] - 2 Weeks Discharge Medications: New oxycodone-acetaminophen 5-325 mg Tablet 1 tablet PO Q6H PRN (Reason: Pain Rated 4-6) Qty: 10 0RF Rx Instructions: Take 0.5 - 1 tablet every 6 hours for pain Continued duloxetine 40 mg capsule,delayed release(DR/EC) 40 mg PO DAILY Patient Comments: Says takes at HS bupropion HCl 150 mg tablet extended release 24 hr 300 mg PO DAILY omeprazole 40 mg capsule,delayed release(DR/EC) 40 mg PO DAILY Qty: 30 0RF Patient Comments: Sayalyce takes at HS magnesium 250 mg tablet 250 mg PO DAILY One-A-Day Womens Formula 18 mg iron-400 mcg-500 mg tablet 1 tablet PO DAILY Other Ambulatory Orders: Complete Blood Count no Diff (Routine) Timeframe: 20250117 Location: Determined by Patient Ordered By: Carmella Nick Quality VTE Prophylaxis VTE prophylaxis: mechanical ordered and pharmacologic ordered
== END 2025-01-15 12:42 | disposition home or self-care (01) ==
LOC: ANHSURGERY 11:33 → ANHIMU 17:11
PROVIDERS: Visit Provider Surgery
PROC: 0FT44ZZ Resection of Gallbladder, Percutaneous Endoscopic Approach (ICD-10-PCS; CPT 47562; principal; 2025-01-14 13:30)
DX: K80.10 Calculus of gallbladder with chronic cholecystitis without obstruction (principal); G89.18 Other acute postprocedural pain; E28.2 Polycystic ovarian syndrome; K21.9 Gastro-esophageal reflux disease without esophagitis; F41.9 Anxiety disorder, unspecified; E66.9 Obesity, unspecified; Z68.36 Body mass index [BMI] 36.0-36.9, adult; Z98.890 Other specified postprocedural states; Z87.891 Personal history of nicotine dependence; Z82.49 Family history of ischemic heart disease and other diseases of the circulatory system
CPT/HCPCS: 47562; 36415; 80053; 85025; 85027; 85610; 85730; 86850; 86900; 86901; 88304; A9270; J0690; J1100; J1650; J1741; J1885; J2003; J2250; J2270; J2371; J2405; J2704; J3010; J7120

== ENCOUNTER 2025-01-17 15:35 | Outpatient (CLI) | payer OTHER, SELFPAY ==
[2025-01-17 15:55] LABS: Hematocrit 39.7 % (37.0-47.0); Hemoglobin 13.5 g/dL (12.0-15.0); Mean Corpuscular Hemoglobin 32.1 pg (26-34); Mean Corpuscular Volume 94.5 fl (80-100); Mean Platelet Volume 9.3 fl (7.4-10.4); Platelet Count Result 399 k/mm3 (150-375); Red Cell Distribution Width 11.9 % (11.5-14.5); White Blood Count 8.9 K/mm3 (4.5-10.0)
== END 2025-01-17 15:36 | disposition home or self-care (01) ==
LOC: ANHLAB 15:36
PROVIDERS: Visit Provider Nurse Practitioner Family
DX: Z90.49 Acquired absence of other specified parts of digestive tract (principal)
CPT/HCPCS: 36415; 85027

== ENCOUNTER 2025-07-09 08:20 | Emergency (ER) | payer OTHER, SELFPAY ==
--- NOTE | ~2025-07-09 | XR_ITS ---
EXAM/ PROCEDURE: XR wrist RT min 3V - 07/09/2025 8:50 CDT HISTORY: 24 years old Female with injury last night hand went through window COMPARISON: None available TECHNIQUE: Three view(s) FINDINGS/ IMPRESSION: There are no fractures or dislocations.Joint spaces are within normal limits. Reviewed, dictated and finalized at location N.
[2025-07-09 08:31] VITALS: BP 126/89; PULSE 94; RESP 18; TEMP 36.5; O2SAT 100
--- NOTE | 2025-07-09 08:47 | ED.WOUNDLAC ---
HPI - Wound/Laceration General Chief Complaint: Wound/Laceration Stated Complaint: R HAND INJURY Source: patient and RN notes reviewed Mode of arrival: ambulatory Limitations: no limitations History of Present Illness HPI narrative: 24-year-old female presents Express Care complaining of right wrist injury. Patient states she tripped and fell striking her right wrist on the window pain that shattered in her hand was stop by another when no pain and hyperextended her right wrist. Patient has a small wound to the ulnar side her wrist patient said she had a hard time stopping bleed however it is stop bleeding prior to arrival. Patient denies any other injuries. Patient says her tetanus is up-to-date. Related Data Home Medications ?Medication ?Instructions ?Recorded ?Confirmed ?Last Taken ?Type duloxetine 40 mg capsule,delayed 40 mg PO DAILY 12/02/24 02/01/25 01/13/25 History release bupropion HCl 150 mg 24 hr tablet, 300 mg PO DAILY 12/30/24 02/01/25 01/14/25 History extended release magnesium 250 mg tablet 250 mg PO DAILY 01/09/25 02/01/25 01/10/25 History uyevtglh-[id number]-[id number]-FA-Ca carb-vit K 1 tablet PO DAILY 01/09/25 02/01/25 01/10/25 History 18 mg iron-400 mcg-500 mg tablet (One-A-Day Womens Formula) Allergies Allergy/AdvReac Type Severity Reaction Status Date / Time No Known Allergies Allergy Verified 07/09/25 08:38 Review of Systems Review of Systems: CONSTITUTIONAL: Denies fever, chills, or sweats. EYES: Denies visual changes, redness, or discharge. ENT: Denies rhinorrhea, congestion, sore throat, or otalgia. CARDIOVASCULAR: Denies chest pain, palpitations, lightheadedness, dizziness, or edema. RESPIRATORY: Denies cough or dyspnea. GASTROINTESTINAL: Denies abdominal pain, nausea, vomiting, or diarrhea. GENITOURINARY: Denies dysuria or hematuria. SKIN: Denies rash or itching. Positive for wound. MUSCULOSKELETAL: Denies back pain, joint pain, or myalgia. Positive for wrist pain. NEUROLOGIC: Denies headache, numbness, loss of consciousness, or weakness. PSYCHIATRIC: Denies anxiety or depression. All other systems reviewed are negative, except as documented in HPI. [facility] Past Medical History Medical History Headache PCOS (polycystic ovarian syndrome) GERD (gastroesophageal reflux disease) Anxiety Surgical History Surgical History Hx laparoscopic cholecystectomy 01/14/[address] Traore [place] teeth extracted Hx of dilation of urethra Family History Family History Other Depression Diabetes mellitus Hypertension Social History Social History Smoking status: Never smoker Second hand tobacco smoke exposure: Yes Alcohol intake: never Substance use: never Do You Feel Safe in your Home?: Yes Lack of Transportation: No Lack of Food: Never True Current Housing: I Have Housing Concerned About Future Housing: No Difficulty Paying Gas/Electric Bills: No Difficulty Paying for Meds: No Currently Unemployed: No Education: High School Diploma/GED Difficulty w/ Childcare or Family Care: No Living arrangements: with family Spiritual care concerns: No Comments At the time of my signature, I reviewed and agree with the nursing past medical, surgical, social, and family history. There is no relevant family history pertinent to the patient complaint. Exam Narrative: GENERAL: This is a well-nourished, well-developed adult, in no apparent distress. They are non ill-appearing, nontoxic appearing. HEAD: normocephalic, atraumatic. EYES: Sclera clear/white. Conjunctiva normal. Vision is grossly intact. Extraocular movements intact EARS: External ears normal, Hearing grossly intact. NOSE: External nose normal THROAT: Mucous membranes moist, NECK: Neck supple, CARDIOVASCULAR: Regular rate and rhythm RESPIRATORY: Respiratory rate normal, respiratory effort nonlabored, no respiratory distress SKIN: warm, Dry, intact with no suspicious lesions or rash, good texture and turgor. NEURO: awake, alert, and oriented to person, place and time. There were no obvious focal neurologic abnormalities. EXTREMITIES: Right wrist: There is a small skin avulsion present to the radial anterior side of the wrist measuring approximately 1 cm x 0.5 cm. Wound is superficial. Hemostasis achieved prior to arrival. Mild tenderness to palpation to the wound. No obvious deformity, bruising, redness or swelling. Normal range of motion of wrist. Patient is able to make a fist, stop sign, thumbs-up sign, and okay sign. Radial ulnar nerve distribution intact. Capillary refill less than 2 seconds. Normal sensation. Patient able to wiggle her fingers. Right radial pulse 2 +and palpable. Neurovascular status intact distal injury. Course Course Emergency Course: Portions of this record may have been created with voice recognition software Level of Care: Express Care Visit Vital Signs Vital signs: Vital Signs Temperature 97.7 F 07/09/25 08:31 Pulse Rate 94 07/09/25 08:31 Respiratory Rate 18 07/09/25 08:31 Blood Pressure 126/89 07/09/25 08:31 Pulse Oximetry 100 07/09/25 08:31 Temperature 97.7 F 07/09/25 08:31 Pulse Rate 94 07/09/25 08:31 Respiratory Rate 18 07/09/25 08:31 Blood Pressure 126/89 07/09/25 08:31 Pulse Oximetry 100 07/09/25 08:31 Reviewed MDM - Wound/Laceration MDM Narrative Medical decision making narrative: Since patient hyperextend her risk wrist will update imaging to this assess for further injuries. She has superficial wound occurred last night. Dermal layer intact. Wound is approximated. No indication for wound closure. Neurovascular status intact distal to injury. Discussed physical exam findings. Advised supportive measures and signs/symptoms to go to the ER. Pt is appropriate for outpt treatment and f/u. Differential Diagnosis Differential diagnosis: Likely laceration, avulsion of skin and other (Wrist fracture, wrist sprain, contusion) Critical Care Time Critical Care Time Critical Care Time: No Discharge Plan Discharge Clinical Impression: Avulsion of skin Patient Disposition: Home Condition: Stable Instructions: Skin Avulsion (ED) Additional Instructions: The x-ray of your right wrist is negative for any fractures or acute findings. Wash wounds daily with mild soap and water. May apply Vaseline or bacitracin daily to the wound. Keep it dry and covered with nonadherent dressing here today in leave it open air at night. Avoid dirty water to the wound has healed completely. Follow-up with PCP in 3-5 days. Go to the ER if you developed redness, swelling, pain, fevers, green/yellow drainage, bleeding problems, or any serious concerns. Patient Language: Irish Prescriptions: No Action duloxetine 40 mg capsule,delayed release(DR/EC) 40 mg PO DAILY Patient Comments: Says takes at HS bupropion HCl 150 mg tablet extended release 24 hr 300 mg PO DAILY magnesium 250 mg tablet 250 mg PO DAILY One-A-Day Womens Formula 18 mg iron-400 mcg-500 mg tablet 1 tablet PO DAILY Follow-up/Referrals: PHYSICIAN,COOK FRUIT [Primary Care Provider, Internal Medicine] Stand Alone Forms: Work/School Release IP Time of Disposition: 09:03
== END 2025-07-09 09:08 | disposition home or self-care (01) ==
DX: S61.501A Unspecified open wound of right wrist, initial encounter (principal); W01.198A Fall on same level from slipping, tripping and stumbling with subsequent striking against other object, initial encounter; E28.2 Polycystic ovarian syndrome; K21.9 Gastro-esophageal reflux disease without esophagitis; F41.9 Anxiety disorder, unspecified
CPT/HCPCS: 73110; 99213; G0463

== ENCOUNTER 2025-08-25 22:54 | Emergency (ER) | payer OTHER, SELFPAY ==
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
[2025-08-25 22:57] VITALS: BP 144/85; PULSE 102; RESP 20; TEMP 36.9; O2SAT 95
--- OUTSIDE RECORDS SUMMARY | 2025-08-25 22:57 | XMS_ITS | Clinical Summary ---
Author Organization [facility] A Address [address] [place] [address] Care Team Providers Care Graphic Manager Name Role Phone Talon Beach MD Primary Care Provider [phone] Allergies No known active allergies Medications buPROPion XL (WELLBUTRIN XL) 300 mg 24 hr tablet Take 1 tablet (300 mg total) by mouth daily [address] (CYMBALTA) 30 mg capsule Take 1 capsule (30 mg total) by mouth daily 5 Active magnesium gluconate 12.5 mg magne- sium (250 mg) tablet Take 250 mg by mouth daily 5 Active multivit with calcium,iron,min (MULTIPLE VITAMIN, WOMENS ORAL) Take 1 tablet by mouth daily 5 Active famotidine (PEPCID) 20 mg tablet Take 1 tablet (20 mg total) by mouth 2 (two) times a day Active albuterol HFA (PROVENTIL HFA,VENTOLIN HFA,PROAIR HFA) 90 mcg/actuation inhalerIndication s:Mild intermittent asthma without complication Inhale 2 puffs every 6 (six) hours as needed for wheezing 3 each 4 5 Active Active Problems Problem Noted Date Diagnosed Date PCOS (polycystic ovarian syndrome) 08/12/2025 Assessment & Plan (08/12/2025 11:41 AM CDT): Chronic hx. Not currently managed w/ OCPs. Previously stopped taking OCPs due to severe headaches. She has symptoms of oligomenorrhea and difficulty losing weight. Plan: - Monitoring for metabolic syndrome w/ lipid panel, A1c, CBC, CMP Orders: CBC with auto differential; Future Comprehensive metabolic panel; Future Lipid panel; Future Hemoglobin A1c; Future Mild intermittent asthma without complication Assessment & Plan (08/12/2025 11:41 AM CDT): Chronic hx, stable. No recent exacerbations. Uses inhaler rarely when she has URIs. Plan: - Refilling PRN albuterol inhaler Orders: albuterol HFA (PROVENTIL HFA,VENTOLIN HFA,PROAIR HFA) 90 mcg/actuation inhaler; Inhale 2 puffs every 6 (six) hours as needed for wheezing Encounters Date Type Department Care Team Description 08/14/2025 Orders Only [facility] at [address] [phone] Talon Beach MD Well woman exam (Primary Dx) 08/13/2025 Results Follow-Up [facility] at [address] [phone] Talon Beach MD Hepatitis C antibody Blood, CBC with auto differential, Comprehensive metabolic panel, Additional followed-up results: 5 08/12/2025 11:45 AM CDT Lab [address] Need for hepatitis C screening test; PCOS (polycystic ovarian syndrome); Encounter for screening for HIV 08/12/2025 11:00 AM CDT Office Visit [facility] Res[facility] at [address] [address] Talon Beach MD Encounter for adult wellness visit (Primary Dx); PCOS (polycystic ovarian syndrome); Cervical cancer screening; Encounter for screening for HIV; Need for hepatitis C screening test; Mild intermittent asthma without complication from Last 3 Months Immunizations Immunization Administration Dates Next Due Influenza, Quadrivalent, Spl it, Preservative Free, Intramuscular 09/14/2021 Influenza, Trivalent, Cell C ulture-based MDCK, Preservative Free, Antibiotic Free, Intramuscular 07/11/2025 Influenza, Trivalent, Preservative Free, Intramu scular 08/01/2024 PPD TEST 07/26/2023 Surgical History Surgery Date Site/Laterality Comments LAPAROSCOPIC CHOLECYSTECTOMY 01/04/2025 - 02/03/2025 N/A Social History Tobacco Use Types Packs/Day Years Used Date Smoking Tobacco: Never PHQ-2 Answer Date Recorded PHQ-2 Total Score (If total score is 3 or more points, staff should administer the PHQ-9) 0 08/12/2025 Comments No Sex and Gender Information Value Date Recorded Sex Assigned at Not on file Legal Sex Female 9:35 AM CDT Gender Identity Not on file Sexual Orientation Not on file Obstetrics History Last Filed Vital Signs Vital Sign Reading Time Taken Comments Blood Pressure 108/80 08/12/2025 10:55 AM CDT Pulse 116 08/12/2025 10:55 AM CDT Temperature - - Respiratory Rate 17 08/12/2025 10:55 AM CDT Oxygen Saturation 98% 08/12/2025 10:55 AM CDT Inhaled Oxygen Concentration - - Weight 99.6 kg (219 lb 9.6 oz) 08/12/2025 10:55 AM CDT Height 162.6 cm (5' 4) 08/12/2025 10:55 AM CDT Body Mass Index 37.69 08/12/2025 10:55 AM CDT Plan of Treatment Health Maintenance Due Date Last Done Comments Cervical Cancer Screening 2002 DTaP/Tdap/Td Vaccine (1 - Tdap) 2013 Varicella Vaccines (1 of 2 - 13+ 2-dose series) 2015 HPV Vaccines (1 - 3-dose series) 2017 Meningococcal B Vaccine (1 o f 2 - Standard) 2018 Hepatitis B Screening 2020 Pneumococcal vaccine <65 (1 of 2 - PCV) 2021 Depression Screening 08/12/2026 08/12/2025 Regular Well Visit/Exam 18-64 08/12/2026 08/12/2025 Influenza Vaccine Completed 07/11/2025, , 09/14/2021 Hepatitis C Screening Completed 08/12/2025 Procedures Procedure Name Priority Date/Time Associated Diagnosis Comments EGFR Routine 08/12/2025 11:42 AM CDT PCOS (polycystic ovarian syndrome) DIFFERENTIAL AUTO Routine 08/12/2025 11: 42 AM CDT PCOS (polycystic ovarian syndrome) HEMOGLOBIN A1C Routine 08/12/2025 11:42 AM CDT PCOS (polycystic ovarian syndrome) LIPID PANEL Routine 08/12/2025 11:42 AM CDT PCOS (polycystic ovarian syndrome) COMPREHENSIVE METABOLIC PANEL Routine 08/12/2025 11:42 AM CDT PCOS (polycystic ovarian syndrome) CBC WITH AUTO DIFFERENTIAL Routine 08/12/2025 11:42 AM CDT PCOS (polycystic ovarian syndrome) HIV 1/2 ANTIBODY PLUS P24 ANTIGEN Routine 08/12/2025 11:42 AM CDT Encounter for screening for HIV HEPATITIS C ANTIBODY Routine 08/12/2025 11:42 AM CDT Need for hepatitis C screening test from Last 3 Months Results * eGFR (08/12/2025 11:42 AM CDT) eGFR >90 >=60 mL/min/1. 73 m2 Comment: Interpretive Data Reference Interval Normal >/= 90 mL/min/1.73m2 Mildly decreased* 60 - 89 mL/min/1.73m2 Mildly to moderately decreased 45 - 59 mL/min/1.73m2 Moderately to severely decreased 30 - 44 mL/min/1.73m2 Severely decreased 15 - 29 mL/min/1.73m2 Kidney Failure < 15 mL/min/1.73m2 *Relative to young adult level Estimated glomerular filtration rate is determined by the 2020 CKD-EPI equation recommended by the National Kidney Foundation (A Unifying Approach to GFR Estimation: Recommendations of the NKF-ASK Task Force on Reassessing the Inclusion of Race in Diagnosing Kidney Disease, JASN 202). The CKD-EPI equation should not be used for patients with unstable renal function and has not been validated in children and those over 70. Current interpretive data was last reviewed 2021. Blood 08/12/2025 11:4 2 AM CDT 08/12/2025 1:13 PM CDT us Talon Beach MD LAB BLOOD ORDERABLES Final Resul t [facility]AN [facility]ON[facility] ([place]) 1 [facility] [place] [address] * Differential, auto (08/12/2025 11:42 AM CDT) Neutrophil abs 5.85 1.50 - 6.50 K/cumm Imm gran abs 0.03 0.00 - 0.10 K/cumm [facility] ([place]) Lymphocyte abs 2.04 0.80 - 3.30 K/cumm [facility] ([place]) Monocyte abs 0.80 0.20 - 0.80 K/cumm [facility] ([place]) Eosinophil abs 0.22 0.00 - 0.50 K/cumm [facility] ([place]) Basophil abs 0.02 0.00 - 0.10 K/cumm [facility] ([place]) Neutrophil pct 65.3 % [facility] ([place]) Comment: Interpretive Data Percent cell count reference ranges are not reported, since discordance with absolute values may lead to misinterpretation of CBC data. Current Interpretive Data was last revised on 2018. Imm gran pct 0.3 % [facility] ([place]) Comment: Interpretive Data Percent cell count reference ranges are not reported, since discordance with absolute values may lead to misinterpretation of CBC data. Current Interpretive Data was last revised on 2018. Lymphocyte pct 22.8 % [facility] ([place]) Comment: Interpretive Data Percent cell count reference ranges are not reported, since discordance with absolute values may lead to misinterpretation of CBC data. Current Interpretive Data was last revised on 2018. Monocyte pct 8.9 % [facility] ([place]) Comment: Interpretive Data Percent cell count reference ranges are not reported, since discordance with absolute values may lead to misinterpretation of CBC data. Current Interpretive Data was last revised on 2018. Eosinophil pct 2.5 % [facility] ([place]) Comment: Interpretive Data Percent cell count reference ranges are not reported, since discordance with absolute values may lead to misinterpretation of CBC data. Current Interpretive Data was last revised on 2018. Basophil pct 0.2 % [facility] ([place]) Comment: Interpretive Data Percent cell count reference ranges are not reported, since discordance with absolute values may lead to misinterpretation of CBC data. Current Interpretive Data was last revised on 2018. Blood 08/12/2025 11:4 2 AM CDT 08/12/2025 1:13 PM CDT Talon Beach MD LAB BLOOD ORDERABLES Final Resul t Performing Organization Address City/[facility] Co de Phone Number JOAN [facility]ON[facility] ([place]) [address] [place] [address] * HIV 1/2 Antibody plus p24 Antigen Blood (08/12/2025 11:42 AM CDT) [facility] HIV 1/2 ab + p24 ag Nonreactive Nonreactive Comment: Nonreactive for HIV-1 antigen and HIV-1/HIV-2 antibodies. No laboratory evidence of HIV infection. If acute HIV infection is suspected, consider testing for HIV-1 RNA. Testing performed by: [facility], [address] [place] [address], [address] Blood 08/12/2025 11:4 2 AM CDT 08/12/2025 5:15 PM CDT Talon Beach MD LAB MICROBIOLOGY - GENERAL ORDER KENDY Final Result Performing Organization Address [facility] de Phone Number [facility]AN [facility]ON[facility] ([place]) [address] [place] [address] * CBC with auto differential (08/12/2025 11:42 AM CDT) Pathologist [facility] WBC 8.96 3.80 - 9.90 K/cumm Hgb 15.5 11.9 - 15.5 g/dL [facility] ([place]) Hct 44.9 35.6 - 45.5 % [facility] ([place]) Plt 387 150 - 400 K/cumm [facility] ([place]) MPV 9.9 9.1 - 12.3 fL [facility] ([place]) RBC 4.94 3.90 - 5.20 M/cumm [facility] ([place]) MCV 90.9 81.3 - 96.4 fL [facility] ([place]) MCH 31.4 27.1 - 33.3 pg [facility] ([place]) MCHC 34.5 32.3 - 35.7 g/dL [facility] ([place]) RDW CV 11.6 11.1 - 14.9 % [facility] ([place]) RDW SD 38.4 35.7 - 48.1 fL [facility] ([place]) NRBC abs 0.00 0.00 - 0.01 K/cumm [facility] ([place]) Blood 08/12/2025 11:4 2 AM CDT 08/12/2025 1:13 PM CDT Talon Beach MD LAB BLOOD ORDERABLES Final Resul t Performing Organization Address [facility] Co de Phone Number [facility] ([place]) [address] [place] [address] [place] [address] * Hepatitis C antibody Blood (08/12/2025 11:42 AM CDT) Hep C Ab Nonreactive Nonreactive Comment: Interpretive Data Nonreactive: Antibodies to HCV not detected. Does NOT exclude the possibility of recent exposure to HCV. Equivocal: Equivocal for HCV antibodies. Supplemental molecular testing will be automatically performed to determine infection status in accordance with current CDC screening recommendations. Reactive: Positive for HCV antibodies. This may represent current or past HCV infection. Supplemental molecular testing will be automatically performed to determine current infection status in accordance with current CDC screening recommendations. Interpretive data was last revised on 2020. Testing performed by: [facility], [address] [place] [address], [place]., [address] Blood 08/12/2025 11:4 2 AM CDT 08/12/2025 5:15 PM CDT Talon Beach MD LAB MICROBIOLOGY - GENERAL ORDER KENDY Final Result Performing Organization Address City/[facility] Co de Phone Number [facility] ([place]) 1 [facility] [employer] [place] [address] * Hemoglobin A1c (08/12/2025 11:42 AM CDT) Hgb A1C 5.2 4.0 - 5.6 % [facility] ([place]) Estimated Average Glucose 103 mg/dL [facility] ([place]) Comment: The ADA recommends reporting an estimated Average Glucose (eAG) with all Hemoglobin A1c results using the equation derived from a study of 507 normal and diabetic adults. Minority populations were underrepresented and children were not included. (Diabetes Care 31:6815-3043, 2008). The eAG is not equivalent to a fasting glucose. Testing performed by: [facility], [facility], [place], [address] Blood 08/12/2025 11:4 2 AM CDT 08/12/2025 1:13 PM CDT us Talon Beach MD LAB BLOOD ORDERABLES Final Resul t [facility] ([place]) 1 [facility] Department [place] [address] * (ABNORMAL) Lipid panel (08/12/2025 11:42 AM CDT) Cholesterol 172 30 - 199 mg/dL [facility] ([place]) Comment: Interpretive Data Ages < or = 19 years Acceptable: <170 mg/dL Borderline high: 170-199 mg/dL High: >or= 200 mg/dL Ages > or = 20 years Desirable: <200 mg/dL Borderline high: 200-239 mg/dL High: >or= 240 mg/dL Literature References: 1. Expert Panel on Integrated Guidelines for Cardiovascular Health and Risk Reduction in Children and Adolescents. Pediatrics 2011;128:S213 2. NCEP Expert Panel. Circulation 2004;110:227 Current Interpretive Data was last revised on 2018. Triglycerides 174(H) <=149 mg/dL [facility] ([place]) Comment: Interpretive Data Ages < or = 9 years Acceptable: <75 mg/dL Borderline high: 75-99 mg/dL High: >or= 100 mg/dL Ages 10 to 20 years Acceptable: <90 mg/dL Borderline high: 90-129 mg/dL High: >or= 130 mg/dL Ages > or = 20 years Desirable: <150 mg/dL Borderline high: 150-199 mg/dL High: 200-499 mg/dL Very high: >or= 499 mg/dL Literature References: 1. Expert Panel on Integrated Guidelines for Cardiovascular Health and Risk Reduction in Children and Adolescents. Pediatrics 2011;128:S213 2. NCEP Expert Panel. Circulation 2004;110:227 Current Interpretive Data was last revised on 2018. HDL 42 >=40 mg/dL [facility] ([place]) Comment: Interpretive Data Ages < or = 19 years Acceptable: >45 mg/dL Borderline low: 40-45 mg/dL Low: <40 mg/dL Ages > or = 20 years Desirable: >or= 60 mg/dL Low: <40 mg/dL Literature References: 1. Expert Panel on Integrated Guidelines for Cardiovascular Health and Risk Reduction in Children and Adolescents. Pediatrics 2011;128:S213 2. NCEP Expert Panel. Circulation 2004;110:227 Current Interpretive Data was last revised on 2018. LDL, calculated 100 <=129 mg/dL [facility] ([place]) Comment: Interpretive Data Ages < or = 19 years Acceptable: <110 mg/dL Borderline high: 110-129 mg/dL High: >or= 130 mg/dL Ages > or = 20 years Optimal: <100 mg/dL Near optimal: 100-129 mg/dL Borderline high: 130-159 mg/dL High: >160 mg/dL Calculated using the Cristian LDL-C estimating equation. This equation was implemented on 2024. Prior to this date LDL-C was estimated using the Friedewald equation. Literature References: 1. Expert Panel on Integrated Guidelines for Cardiovascular Health and Risk Reduction in Children and Adolescents. Pediatrics 2011;128:S213 2. NCEP Expert Panel. Circulation 2004;110:227 3. Cristian Gaines et al. RAMA Cardiol. 2020 March 06;5(5):540-548. doi: 10.1001/jamacardio.2020.0013 Current Interpretive Data was last revised on 2024. Testing performed by: [facility], [facility], [place], [address] Non-HDL Cholesterol 130 mg/dL [facility] ([place]) Comment: Interpretive Data Ages < or = 19 years Acceptable: <120 mg/dL Borderline high: 120-144 mg/dL High: >145 mg/dL Ages > or = 20 years When triglycerides are >200 mg/dL, Non-HDL cholesterol is a secondary target of therapy with treatment goals that are 30 mg/dL greater than the LDL cholesterol target. Literature References: 1. Expert Panel on Integrated Guidelines for Cardiovascular Health and Risk Reduction in Children and Adolescents. Pediatrics 2011;128:S213 2. NCEP Expert Panel. Circulation 2004;110:227 Current Interpretive Data was last revised on 2018. Testing performed by: [facility], [place], [address] Chol/HDL ratio 4 [facility] ([place]) Comment:Testing performed by : [place], [address] Blood 08/12/2025 11:4 2 AM CDT 08/12/2025 1:13 PM CDT us Talon Beach MD LAB BLOOD ORDERABLES Final Resul t [facility] ([place]) [address] [place] [address] Department [place] [address] * (ABNORMAL) Comprehensive metabolic panel (08/12/2025 11:42 AM CDT) Sodium 139 135 - 145 mmol/L [facility] ([place]) Potassium, pl 3.9 3.3 - 4.9 mmol/L [facility] ([place]) Chloride 105 97 - 110 mmol/L [facility] ([place]) CO2 21(L) 22 - 32 mmol/L [facility] ([place]) Anion gap 13 2 - 15 mmol/L [facility] ([place]) BUN 9 6 - 25 mg/dL [facility] ([place]) Creatinine 0.81 0.60 - 1.10 mg/dL [facility] ([place]) Glucose 100 70 - 199 mg/dL [facility] ([place]) Comment: Interpretive Data Fasting glucose >/= 126 mg/dl is diagnostic for diabetes. Fasting is defined as no caloric intake for at least 8 hours. Fasting glucose between 100 mg/dl to 125 mg/dl is diagnostic of prediabetes. In a patient with classic symptoms of hyperglycemia or hyperglycemic crisis, a random glucose >/= 200 mg/dl is diagnostic for diabetes. In the absence of unequivocal hyperglycemia, results should be confirmed by repeat testing. The classification and Diagnosis of Diabetes Diabetes Care 202; 46: S19-S40. Current interpretive data was last revised 2022. Calcium 9.8 8.5 - 10.3 mg/dL [facility] ([place]) Bilirubin, total 0.3 0.1 - 1.2 mg/dL [facility] ([place]) Protein, pl 7.9 6.5 - 8.5 g/dL [facility] ([place]) Albumin 4.5 3.5 - 5.0 g/dL [facility] ([place]) Alk phos 71 40 - 130 Units/L [facility] ([place]) ALT 24 7 - 45 Units/L [facility] ([place]) AST 27 10 - 45 Units/L [facility] ([place]) Blood 08/12/2025 11:4 2 AM CDT 08/12/2025 1:13 PM CDT us Talon Beach MD LAB BLOOD ORDERABLES Final Resul t [facility] ([place]) 1 [facility] [place] [address] from Last 3 Months Insurance [facility] H[facility]POS Care Teams Graphic Manager Relationship Specialty Start Date End Date Talon Beach MD [address] [facility] [address] [place] [place] [id number] PCP - General Family Medicine 08/08/25
--- OUTSIDE RECORDS SUMMARY | 2025-08-25 22:57 | XMS_ITS | Encounter Summary ---
Author Organization [facility] Healthcare Address [address] [place] [address] Care Team Providers Care Autism Teacher Name Role Phone Talon Beach MD Primary Care Provider [phone] Encounter Details Date Type Department Care Team (Late st Contact Info) Description 08/13/2025 Results Follow-Up [facility] Residency Clinic at [address] [place] [id number] Talon Beach MD [address] [place] [address] [address] [place] [address] Hepatitis C antibody Blood, CBC with auto differential, Comprehensive metabolic panel, Additional followed-up results: 5 Social History Tobacco Use Types Packs/Day Years [...] on file Sexual Orientation Not on file documented as of this encounter Plan of Treatment Not on file documented as of this encounter Visit Diagnoses Not on filedocumented in this encounter Care Teams Autism Teacher Relationship Specialty Start Date End Date Talon Beach MD [address] [facility] [address] [place] [address] PCP - General Family Medicine 08/08/25 documented as of this encounter
--- OUTSIDE RECORDS SUMMARY | 2025-08-26 00:31 | XMS_ITS | Clinical Summary ---
[facility] Address [address] [place] [address] Care Team Providers Care Hoisting Laborer Name Role Phone Talon Beach MD Primary Care Provider [phone] Allergies No known active allergies Medications buPROPion [...] Department Care Team Description 08/14/2025 Orders Only [facility] at [address] [phone] Talon Beach MD Well woman exam (Primary Dx) 08/13/2025 Results Follow-Up [facility] Res[facility] at [address] [address] Talon Beach MD Hepatitis C antibody Blood, CBC with auto differential, Comprehensive metabolic panel, Additional followed-up results: 5 08/12/2025 11:45 AM CDT Lab [address] Need for hepatitis C screening test; PCOS (polycystic ovarian syndrome); Encounter for screening for HIV 08/12/2025 11:00 AM CDT Office Visit [facility] at [address] [address] Talon Beach MD Encounter for adult wellness [...] BLOOD ORDERABLES Final Resul t JOAN JONES ([place]) 1 [facility] Department [place] [address] * Differential, auto (08/12/2025 11:42 AM CDT) [...] ORDERABLES Final Resul t Performing Organization Address City/[facility] Co de Phone Number JOAN JONES (VAN WERT) 1 [place] [address] * HIV 1/2 Antibody plus p24 Antigen Blood (08/12/2025 11:42 AM CDT) [facility] HIV 1/2 ab + p24 ag Nonreactive Nonreactive Comment: Nonreactive for HIV-1 antigen and HIV-1/HIV-2 antibodies. No laboratory evidence of HIV infection. If acute HIV infection is suspected, consider testing for HIV-1 RNA. Testing performed by: , [address] [place] [address], [address] Blood 08/12/2025 11:4 2 AM CDT 08/12/2025 5:15 PM CDT Talon Beach MD LAB MICROBIOLOGY - GENERAL ORDER KENDY Final Result Performing Organization Address [facility] de Phone Number JOAN JONES (V[place]ERT) 1 [place] [address] * CBC with auto differential (08/12/2025 11:42 AM CDT) Pathologist [facility] WBC 8.96 3.80 - 9.90 K/cumm Hgb 15.5 11.9 - 15.5 g/dL [facility] ([place] Hct 44.9 35.6 - 45.5 % [facility] ([place] Plt 387 150 - 400 K/cumm [facility] ([place] MPV 9.9 9.1 - 12.3 fL [facility] RBC 4.94 3.90 - 5.20 M/cumm [facility] ([place] MCV 90.9 81.3 - [...] ORDERABLES Final Resul t Performing Organization Address [facility] Co de Phone Number [facility] ([place]) [address] [place] [address] [place] [address] * Hepatitis C antibody Blood (08/12/2025 11:42 [...] last revised on 2020. Testing performed by: , [address] [place] [address], [place]., [address] Blood 08/12/2025 11:4 2 AM CDT 08/12/2025 5:15 PM CDT Talon Beach MD LAB MICROBIOLOGY - GENERAL ORDER KENDY Final Result Performing Organization Address City/[facility] Co de Phone Number [facility] ([place]) 1 [facility] [place] [address] * Hemoglobin A1c (08/12/2025 11:42 AM CDT) Hgb A1C 5.2 4.0 - 5.6 % JOAN JONES ([place]) Estimated Average Glucose 103 mg/dL JOAN JONES ([place]) Comment: The ADA recommends reporting an estimated Average Glucose (eAG) with all Hemoglobin A1c results using the equation derived from a study of 507 normal and diabetic adults. Minority populations were underrepresented and children were not included. (Diabetes Care 31:7331-8100, 2008). The eAG is not equivalent to a fasting glucose. Testing performed by: [facility], [facility], [place], [address] Blood 08/12/2025 11:4 2 AM CDT 08/12/2025 1:13 PM CDT us Talon Beach MD LAB BLOOD ORDERABLES Final Resul t JOAN JONES ([place]) 1 [facility] Department [place] [address] * (ABNORMAL) Lipid panel (08/12/2025 11:42 AM CDT) Cholesterol 172 30 - 199 mg/dL JOAN JONES ([place]) Comment: Interpretive Data Ages < or = [...] 2018. Triglycerides 174(H) <=149 mg/dL JOAN JONES ([place]) Comment: Interpretive Data Ages < or = [...] 2018. HDL 42 >=40 mg/dL JOAN JONES ([place]) Comment: Interpretive Data Ages < or = [...] last revised on 2024. Testing performed by: [facility], [facility], [place], [address] Non-HDL Cholesterol 130 mg/dL JOAN JONES ([place]) Comment: Interpretive Data Ages < or = [...] last revised on 2018. Testing performed by: [facility], [place], [address] Chol/HDL ratio 4 [facility] ([place]) Comment:Testing performed by : [place], [address] Blood 08/12/2025 11:4 2 AM CDT 08/12/2025 1:13 PM CDT us Talon Beach MD LAB BLOOD ORDERABLES Final Resul t [facility] ([place] [address] [place] [address] Department [place] [address] * (ABNORMAL) Comprehensive metabolic panel (08/12/2025 11:42 [...] Final Resul t JOAN JONES ([place]) 1 [facility] Department [place] [address] from Last 3 Months Insurance [facility] [place] [id number] Care Teams Hoisting Laborer Relationship Specialty Start Date End Date Talon Beach MD [address] [facility] [address] [place] [id number] PCP - General Family Medicine 08/08/25
--- OUTSIDE RECORDS SUMMARY | 2025-08-26 00:31 | XMS_ITS | Encounter Summary ---
Author Organization [facility] Healthcare Address [address] [place] [id number] Care Team Providers Care Tire Buster Name Role Phone Talon Beach MD Primary Care Provider [phone] Encounter Details Date Type Department Care Team (Late st Contact Info) Description 08/13/2025 Results Follow-Up [facility] Medical [facility] Residency Clinic at [address] [place] [id number] Talon Beach MD [address] [place] [address] [address] [place] [address] Hepatitis C antibody Blood, CBC with auto [...] on filedocumented in this encounter Care Teams Tire Buster Relationship Specialty Start Date End Date Talon Beach MD 2 [facility] [address] [place] [address] PCP - General Family Medicine 08/08/25 documented as of this encounter
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
[2025-08-26 01:38] LABS: Alveolar/Arterial O2 Gradient 11.1 mmHg; Carboxyhemoglobin 0.6 % THb (0-2.0); Fractional Inspired Oxygen 21 %; HCO3 ABG 23.7 mEq/l (22.0-26.0); Methemoglobin ABG 0.2 %THb (0-1.5); Oxygen Content ABG 20.9 %vol (16.0-22.0); Oxygen Saturation ABG 98.2 % (95.0-100.0); PCO2 ABG 30.6 mmHg (35.0-45.0); PO2 ABG 102.0 mmHg (80.0-100.0); PO2 FiO2 Ratio Arterial Blood 4.86 %; Reduced Hemoglobin 1.7 %THb (0-5.0)
[2025-08-26 01:48] LABS: Modified Allen's Test Pass; Site Drawn LEFT RADIAL
[2025-08-26 02:19] VITALS: BP 128/88; PULSE 90; RESP 20; O2SAT 100
== END 2025-08-26 02:20 | disposition home or self-care (01) ==
PROVIDERS: Emergency Provider Physician Assistant
DX: T59.811A Toxic effect of smoke, accidental (unintentional), initial encounter (principal); K21.9 Gastro-esophageal reflux disease without esophagitis; F41.9 Anxiety disorder, unspecified; X00.8XXA Other exposure to uncontrolled fire in building or structure, initial encounter
CPT/HCPCS: 36600; 71046; 82375; 82805; 83050; 85018; 99283